=== PATIENT | male | born 1935 | race Caucasian/White ===

== ENCOUNTER 2020-01-24 08:02 | Observation (INO) ==
[2020-01-24] MEDS ORDERED: fentaNYL 100 mcg/2 ml 50 MCG/ML VIAL ONE (09:20)
[2020-01-24] MEDS ORDERED: Iodixanol 320 (CONTRAST) 100 ML SDV ONE ×3 (09:20→10:51)
[2020-01-24] MEDS ORDERED: Heparin 2 UNITS/ML 1000 mls 3,000 ML IV ONE (09:20)
[2020-01-24] MEDS ORDERED: Midazolam 5 mg/5 ml VIAL 1 mg/ml 5 ml VIAL (5 mg) ONE (09:20)
[2020-01-24] MEDS ORDERED: Lidocaine 1% VIAL 10 MG/ML VIAL ONE (09:20)
[2020-01-24] MEDS ORDERED: Diazepam 5 mg TAB (*) ONE (09:24)
[2020-01-24] MEDS ORDERED: Heparin 1,000 UNIT/ML CATH LAB 1,000 10 ml (10,000 UNITS) IV ONE ×2 (10:50→11:11)
[2020-01-24] MEDS ORDERED: nitroGLYCERIN DRIP 25,000 MCG/250 ML BTL ONE (10:51)
[2020-01-24] MEDS ORDERED: hydrALAZINE 20 mg/ml 1 ML Vial IV ONE (11:38)
[2020-01-24] MEDS ORDERED: NS 0.9% 1000 ml BAG 1,000 ML IV SCH (12:00)
[2020-01-24] MEDS: Albuterol HFA INHALER 8 gm MDI INH SCH ×2 (15:37→22:13)
[2020-01-25 06:56] LABS: ABS Eosinophils 0.2 10^3/ul (0-0.6); ABS Lymphocytes 0.8 10^3/ul (1.0-4.8); ABS Monocytes 0.7 10^3/ul (0-0.8); Eosinophil % 3.2 %; Hematocrit 40 % (42-52); Hemoglobin 13.5 g/dL (14.0-18.0); Lymphocyte % 11.5 %; Mean Corpuscular HGB Conc 34 g/dL (31-36); Mean Corpuscular Hemoglobin 31 pg (27-31); Mean Corpuscular Volume 90 fL (80-94); Mean Platelet Volume 8.8 fL (7.4-10.4); Nucleated Red Blood Cells % 0.1; Platelet Count 163 10^3/uL (150-450); Red Blood Count 4.41 10^6 /uL (4.18-5.48); Red Cell Distribution Width 16 % (10-15); White Blood Count 7.2 10^3/uL (3.5-10.8)
[2020-01-25 07:14] LABS: Albumin 3.8 g/dL (3.2-5.2); Albumin/Globulin Ratio 1.8 (1-3); Calcium 8.3 mg/dL (8.6-10.3); EGFR African American 80.5 (>60); EGFR Non-African American 66.6 (>60); Globulin 2.1 g/dL (2-4); HDL Cholesterol 55.7 mg/dL; Total Bilirubin 0.7 mg/dL (0.2-1.0); Total Protein 5.9 g/dL (6.4-8.9)
[2020-01-25] MEDS ORDERED: Isosorbide Mononit ER 30mg TAB PO SCH (09:00)
[2020-01-25] MEDS: Albuterol HFA INHALER 8 gm MDI INH SCH (09:07)
[2020-01-25 10:24] VITALS: BP 149/91
== END 2020-01-25 11:15 | disposition home or self-care (01) ==
LOC: CHICATH 08:02 → ICU 08:02
PROVIDERS: ADMIT Specialist; ATTEND Specialist

== ENCOUNTER 2023-02-18 14:50 | Inpatient (IN) ==
[2023-02-18] MEDS ORDERED: Ondansetron ODT 4 mg TAB 4 MG TAB PO PRN (17:09)
[2023-02-18] MEDS ORDERED: Magnesium Hydroxide LIQ 30 ML UDC PO PRN (17:09)
[2023-02-18] MEDS ORDERED: Morphine 2 MG/ML SYRINGE IV PRN (17:09)
[2023-02-18] MEDS ORDERED: Ondansetron 4 mg VIAL 2 MG/ML 2 ml VIAL IV PRN (17:09)
[2023-02-18] MEDS ORDERED: Lactulose 30 ml UDC PO PRN (17:09)
[2023-02-18 17:57] LABS: ABS Basophils 0.1 10^3/uL (0.0-0.1); ABS Eosinophils 0.2 10^3/uL (0.0-0.5); ABS Lymphocytes 1.1 10^3/uL (1.0-4.8); ABS Monocytes 0.7 10^3/uL (0.0-1.1); ABS Neutrophils 5.2 10^3/uL (1.5-7.6); Eosinophil % 2.6 %; Hematocrit 40.2 % (38-53); Hemoglobin 13.5 g/dL (13.2-16.3); Lymphocyte % 15.6 %; Mean Corpuscular Hemoglobin 30.7 pg (27-33); Mean Corpuscular Hgb Conc 33.6 g/dL (31-36); Mean Corpuscular Volume 91.5 fL (80-97); Mean Platelet Volume 7.5 fL (7.5-11.2); Platelet Count 287 10^3/uL (150-450); Red Blood Count 4.39 10^6/uL (4.06-5.63); Red Cell Distribution Width 14.2 % (12-17); White Blood Count 7.2 10^3/uL (3.6-10.2)
[2023-02-18 18:07] LABS: Activated Partial Thrombo Time 34.4 seconds (26.0-38.0); INR 1.14 (0.88-1.18)
[2023-02-18 18:12] LABS: Calcium 9.4 mg/dL (8.6-10.3); Creatinine, Serum 1.48 mg/dL (0.67-1.17); Potassium 4.7 mmol/L (3.5-5.0); eGFR CKD-EPI 45.5 (>60)
[2023-02-18] MEDS: Heparin 5000 UNITS/ML 1 mL VIAL SUBCUT SCH (21:10)
[2023-02-18] MEDS: Magnesium Hydroxide LIQ 30 ML UDC PO SCH (21:11)
[2023-02-19] MEDS: Heparin 5000 UNITS/ML 1 mL VIAL SUBCUT SCH ×3 (05:29→21:27)
[2023-02-19] MEDS: Magnesium Hydroxide LIQ 30 ML UDC PO SCH ×2 (08:44→21:27)
[2023-02-19] MEDS: Vitamin THERAPEUTIC TAB PO SCH (08:50)
[2023-02-20] MEDS: Vitamin THERAPEUTIC TAB PO SCH (09:24)
[2023-02-20] MEDS ORDERED: hydrALAZINE 20 mg/ml 1 ML Vial IV IV SLOW PU PRN (09:53)
[2023-02-20] MEDS: Magnesium Hydroxide LIQ 30 ML UDC PO SCH ×2 (11:34→20:48)
[2023-02-21 07:09] LABS: ABS Lymphocytes 0.7 10^3/uL (1.0-4.8); ABS Monocytes 1.2 10^3/uL (0.0-1.1); ABS Neutrophils 12.6 10^3/uL (1.5-7.6); Hematocrit 35.1 % (38-53); Hemoglobin 11.9 g/dL (13.2-16.3); Lymphocyte % 5.1 %; Mean Corpuscular Hemoglobin 30.7 pg (27-33); Mean Corpuscular Hgb Conc 33.7 g/dL (31-36); Mean Corpuscular Volume 91.1 fL (80-97); Platelet Count 297 10^3/uL (150-450); Red Blood Count 3.86 10^6/uL (4.06-5.63); Red Cell Distribution Width 14.1 % (12-17); White Blood Count 14.5 10^3/uL (3.6-10.2)
[2023-02-21] MEDS: Vitamin THERAPEUTIC TAB PO SCH (08:41)
[2023-02-21] MEDS: Magnesium Hydroxide LIQ 30 ML UDC PO SCH ×2 (08:44→21:06)
[2023-02-21] MEDS ORDERED: Lactated Ringers 1000 ml BAG 1,000 ML IV ONE ×2 (08:49→15:53)
[2023-02-21 09:46] LABS: Albumin 3.6 g/dL (3.2-5.2); Albumin/Globulin Ratio 1.5 (1-3); Calcium 8.6 mg/dL (8.6-10.3); Creatinine, Serum 1.73 mg/dL (0.67-1.17); Globulin 2.4 g/dL (2-4); Potassium 4.9 mmol/L (3.5-5.0); Total Bilirubin 0.5 mg/dL (0.2-1.0); eGFR CKD-EPI 37.7 (>60)
[2023-02-21] MEDS: ceFAZolin 1 GM X 3 DOSES POST-OP Q8H (AddVan) IVPB SCH ×2 (11:12→17:43)
[2023-02-21] MEDS: Enoxaparin 30 MG/0.3 ML SYR SUBCUT SCH (11:12)
[2023-02-22] MEDS: ceFAZolin 1 GM X 3 DOSES POST-OP Q8H (AddVan) IVPB SCH (03:19)
[2023-02-22] MEDS: Enoxaparin 30 MG/0.3 ML SYR SUBCUT SCH (09:49)
[2023-02-22] MEDS: Magnesium Hydroxide LIQ 30 ML UDC PO SCH (09:49)
[2023-02-22] MEDS: Vitamin THERAPEUTIC TAB PO SCH (09:50)
[2023-02-22 09:55] LABS: Calcium 8.4 mg/dL (8.6-10.3); Creatinine, Serum 1.63 mg/dL (0.67-1.17); Potassium 4.6 mmol/L (3.5-5.0); eGFR CKD-EPI 40.5 (>60)
[2023-02-23] MEDS: Vitamin THERAPEUTIC TAB PO SCH (08:14)
[2023-02-23] MEDS: Enoxaparin 30 MG/0.3 ML SYR SUBCUT SCH (08:14)
[2023-02-23 09:04] LABS: Hematocrit 29.7 % (38-53); Hemoglobin 10.2 g/dL (13.2-16.3); Mean Platelet Volume 7.4 fL (7.5-11.2); Platelet Count 256 10^3/uL (150-450)
[2023-02-23 09:26] LABS: Calcium 8.8 mg/dL (8.6-10.3); Creatinine, Serum 1.46 mg/dL (0.67-1.17); Potassium 4.2 mmol/L (3.5-5.0); eGFR CKD-EPI 46.3 (>60)
[2023-02-24] MEDS: Enoxaparin 30 MG/0.3 ML SYR SUBCUT SCH (08:15)
[2023-02-24] MEDS: Vitamin THERAPEUTIC TAB PO SCH (08:15)
[2023-02-24 10:03] VITALS: BP 117/65
== END 2023-02-24 14:10 | DRG 482 ==
LOC: SSU 16:44
PROVIDERS: ADMIT Orthopaedic Surgery Adult Reconstructive Orthopaedic Surgery; ATTEND Orthopaedic Surgery Adult Reconstructive Orthopaedic Surgery

== ENCOUNTER 2023-02-24 09:58 | Inpatient (IN) ==
[2023-02-24] MEDS ORDERED: Senna TAB 8.6 mg TAB PO PRN (15:59)
[2023-02-24] MEDS ORDERED: Magnesium Hydroxide LIQ 30 ML UDC PO PRN (15:59)
[2023-02-24] MEDS: oxyCODONE/Acetamin 5/325 mg TAB PO PRN (20:58)
[2023-02-25 06:55] LABS: ABS Eosinophils 0.3 10^3/uL (0.0-0.5); ABS Lymphocytes 1.5 10^3/uL (1.0-4.8); ABS Neutrophils 5.5 10^3/uL (1.5-7.6); Eosinophil % 3.6 %; Hematocrit 27.7 % (38-53); Hemoglobin 9.6 g/dL (13.2-16.3); Lymphocyte % 18.4 %; Mean Corpuscular Hemoglobin 31.8 pg (27-33); Mean Corpuscular Hgb Conc 34.6 g/dL (31-36); Mean Corpuscular Volume 91.7 fL (80-97); Mean Platelet Volume 7.5 fL (7.5-11.2); Platelet Count 281 10^3/uL (150-450); Red Blood Count 3.03 10^6/uL (4.06-5.63); Red Cell Distribution Width 14.2 % (12-17); White Blood Count 8.4 10^3/uL (3.6-10.2)
[2023-02-25 07:11] LABS: Albumin 3.3 g/dL (3.2-5.2); Albumin/Globulin Ratio 1.4 (1-3); Calcium 8.5 mg/dL (8.6-10.3); Creatinine, Serum 1.21 mg/dL (0.67-1.17); Globulin 2.3 g/dL (2-4); Potassium 4.1 mmol/L (3.5-5.0); Total Bilirubin 0.7 mg/dL (0.2-1.0); Total Protein 5.6 g/dL (6.4-8.9); eGFR CKD-EPI 57.9 (>60)
[2023-02-25] MEDS: Enoxaparin 30 MG/0.3 ML SYR SUBCUT SCH (09:22)
[2023-02-25] MEDS: oxyCODONE/Acetamin 5/325 mg TAB PO PRN (20:54)
[2023-02-26] MEDS: oxyCODONE/Acetamin 5/325 mg TAB PO PRN ×3 (06:53→21:55)
[2023-02-26] MEDS: Enoxaparin 30 MG/0.3 ML SYR SUBCUT SCH (09:21)
[2023-02-27] MEDS: Enoxaparin 30 MG/0.3 ML SYR SUBCUT SCH (08:09)
[2023-02-27] MEDS: oxyCODONE/Acetamin 5/325 mg TAB PO PRN ×2 (13:49→21:25)
[2023-02-28] MEDS: oxyCODONE/Acetamin 5/325 mg TAB PO PRN ×3 (07:37→21:32)
[2023-02-28] MEDS: Enoxaparin 30 MG/0.3 ML SYR SUBCUT SCH (07:38)
[2023-03-01] MEDS: oxyCODONE/Acetamin 5/325 mg TAB PO PRN ×2 (05:58→20:09)
[2023-03-01] MEDS: Enoxaparin 30 MG/0.3 ML SYR SUBCUT SCH (08:12)
[2023-03-02] MEDS: oxyCODONE/Acetamin 5/325 mg TAB PO PRN (06:02)
[2023-03-02 07:37] LABS: ABS Eosinophils 0.3 10^3/uL (0.0-0.5); ABS Lymphocytes 1.4 10^3/uL (1.0-4.8); ABS Monocytes 0.9 10^3/uL (0.0-1.1); ABS Neutrophils 6.7 10^3/uL (1.5-7.6); Eosinophil % 3.3 %; Hematocrit 29.5 % (38-53); Lymphocyte % 15.2 %; Mean Corpuscular Hemoglobin 31.5 pg (27-33); Mean Corpuscular Volume 92.7 fL (80-97); Mean Platelet Volume 7.4 fL (7.5-11.2); Platelet Count 344 10^3/uL (150-450); Red Blood Count 3.18 10^6/uL (4.06-5.63); Red Cell Distribution Width 14.5 % (12-17); White Blood Count 9.3 10^3/uL (3.6-10.2)
[2023-03-02 07:53] LABS: Albumin 3.4 g/dL (3.2-5.2); Albumin/Globulin Ratio 1.5 (1-3); Calcium 8.7 mg/dL (8.6-10.3); Creatinine, Serum 1.16 mg/dL (0.67-1.17); Globulin 2.2 g/dL (2-4); Total Bilirubin 0.7 mg/dL (0.2-1.0); Total Protein 5.6 g/dL (6.4-8.9)
[2023-03-02] MEDS: Enoxaparin 30 MG/0.3 ML SYR SUBCUT SCH (08:09)
[2023-03-03] MEDS: Enoxaparin 30 MG/0.3 ML SYR SUBCUT SCH (08:29)
[2023-03-03 10:05] VITALS: BP 135/61
== END 2023-03-03 14:30 | disposition home or self-care (01) | DRG 561 ==
LOC: PMRU 14:28
PROVIDERS: ADMIT Physical Medicine & Rehabilitation; ATTEND Physical Medicine & Rehabilitation